=== PATIENT | female | born 1945 | race Caucasian/White ===

== ENCOUNTER → 2017-05-09 | Outpatient (CLI) | payer MEDICARE ==
[~2017-05-09] MED LIST: FISH OIL 1,001000 M1 PO; FOLIC ACID0.4 MG PO; MAGNESIUM250 M1 PO; OIL OF OREGANO PO; PROBIOTIC1 EAC1 PO; PROVENTIL HFA6.7 G1 INH; VITAMIN A10000 UNI3 PO; VITAMIN B1 PO; VITAMIN B12 PO; VITAMIN B6 PO; VITAMIN D3 PO; VITAMIN E400 UNIT PO; VITAMINC500 PO; ZINC CHELATE50 MG PO; ZYRTEC10 M2 PO
--- NOTE | 2017-05-09 16:17 | 2DMMODE ---
[place] [address] 2 D/M-MODE ECHOCARDIOGRAM Name: SIENNABELGICA Marla Room: [facility]#: [id number] Admission: 05/09/17 Attend Phys: John Barlow Discharge: Date of : 47 Date of Service: 05/09/17 1616 Report #: [id number] THIS REPORT FOR: //name// APPROVED REPORT Study performed: 05/09/2017 15:02:50 EXAM: Comprehensive 2D, Doppler, and color-flow Echocardiogram Patient Location: Out-Patient Status: routine BSA: 1.57 HR: 89 bpm BP: 116/64 mmHg Other Information Study Quality: Good Indications CAD 2D Dimensions LVEF(%): 75.54 (>50%) IVSd: 8.67 (7-11mm) LVOT Diam: 20.16 (18-24mm) LVDd: 41.37 mm PWd: 8.46 (7-11mm) Ascending Ao: 27.35 (22-36mm) LVDs: 23.21 (25-40mm) Aortic Root: 24.95 mm Welch's LVEF: 75.54 % Volumes Left Atrial Volume (Systole) LA ESV Index: 15.60 mL/m2 Aortic Valve AoV Peak Arun.: 1.19 m/s AO Peak Gr.: 5.62 mmHg LVOT Max P.41 mmHg AO Mean Gr.: 3.19 mmHg LVOT Mean P.78 mmHg LVOT Max V: 0.92 m/s AO V2 VTI: 24.33 cm LVOT Mean V: 0.62 m/s NELLY (VTI): 2.84 cm2 LVOT V1 VTI: 21.67 cm Mitral Valve E/A Ratio: 1.03 MV Decel. Time: 188.55 [place] [address] 2 D/M-MODE ECHOCARDIOGRAM Name: BELGICA EL Room: [facility]#: [id number] Admission: 05/09/17 Attend Phys: John Barlow Discharge: Date of : 47 Date of Service: 05/09/17 1616 Report #: [id number] MV E Max Arun.: 0.99 m/s MV PHT: 54.68 ms MVA (PHT): 4.02 cm2 TDI E/Lateral E': 9.00 E/Medial E': 11.00 Medial E' Arun.: 0.09 m/s Lateral E' Arun.: 0.11 m/s Pulmonary Valve PV Peak Arun.: 0.88 m/s PV Peak Gr.: 3.10 mmHg Left Ventricle The left ventricle is normal size. There is normal LV segmental wall motion. There is normal left ventricular wall thickness. Left ventricular systolic function is normal. The left ventricular ejection fraction is within the normal range. LVEF is 65%. The left ventricular diastolic function is normal. Right Ventricle The right ventricle is normal size. The right ventricular systolic function is normal. Atria The left atrium size is normal. The right atrium size is normal. Aortic Valve The aortic valve is normal in structure. No aortic regurgitation is present. There is no aortic valvular stenosis. Mitral Valve The mitral valve is normal in structure. There is no mitral valve regurgitation noted. No evidence of mitral valve stenosis. Tricuspid Valve The tricuspid valve is normal in structure. There is no tricuspid valve regurgitation noted. Pulmonic Valve The pulmonary valve is normal in structure. There is no pulmonic valvular regurgitation. Great Vessels The aortic root is normal in size. IVC is normal in size and collapses with >50% [place] [address] 2 D/M-MODE ECHOCARDIOGRAM Name: BELGICA EL Marla Room: [facility]#: [id number] Admission: 05/09/17 Attend Phys: John Barlow Discharge: Date of : 47 Date of Service: 05/09/17 1616 Report #: [id number] Pericardium There is no pericardial effusion. <Conclusion> The left ventricle is normal size. There is normal left ventricular wall thickness. Left ventricular systolic function is normal. The left ventricular ejection fraction is within the normal range. LVEF is 65%. The left ventricular diastolic function is normal. The right ventricle is normal size. The left atrium size is normal. The aortic valve is normal in structure. The mitral valve is normal in structure. The tricuspid valve is normal in structure. IVC is normal in size and collapses with >50% inspiration There is no pericardial effusion. There is normal LV segmental wall motion. <ELECTRONICALLY SIGNED> By: Jonny Ca MD, FACC 05/09/17 1616 1616 161 Jonny Ca MD, FACC /INF
== END ==
LOC: M.CRD 14:45
DX: I25.10 Atherosclerotic heart disease of native coronary artery without angina pectoris (principal)

== ENCOUNTER → 2017-10-11 | Outpatient (CLI) | payer MEDICARE ==
[2017-10-11 10:28] LABS: CREATININE 0.8 mg/dL (0.6-1.3)
== END ==
LOC: M.LAB 10:00 → M.CT 10:04
PROVIDERS: Internal Medicine
DX: G44.52 New daily persistent headache (NDPH) (principal); I25.10 Atherosclerotic heart disease of native coronary artery without angina pectoris

== ENCOUNTER → 2018-05-24 | Outpatient (CLI) | payer MEDICARE ==
--- NOTE | 2018-05-24 14:23 | 2DMMODE ---
[place] [address] 2 D/M-MODE ECHOCARDIOGRAM Name: SIENNABELGICA Marla Room: [facility]#: [id number] Admission: 05/24/18 Attend Phys: John Barlow Discharge: Date of : 47 Date of Service: 05/24/18 1423 Report #: [id number] THIS REPORT FOR: //name// APPROVED REPORT Study performed: 05/24/2018 13:09:32 EXAM: Comprehensive 2D, Doppler, and color-flow Echocardiogram Patient Location: Out-Patient BSA: 1.56 HR: 78 bpm BP: 116/64 mmHg Other Information Study Quality: Excellent Indications Palpitations 2D Dimensions IVSd: 9.25 (7-11mm) LVOT Diam: 18.57 (18-24mm) LVDd: 38.75 mm PWd: 8.78 (7-11mm) Ascending Ao: 24.60 (22-36mm) LVDs: 23.47 (25-40mm) Aortic Root: 22.37 mm Volumes Left Atrial Volume (Systole) LA ESV Index: 17.10 mL/m2 Aortic Valve AoV Peak Arun.: 1.00 m/s AO Peak Gr.: 3.97 mmHg LVOT Max P.39 mmHg AO Mean Gr.: 2.08 mmHg LVOT Mean P.67 mmHg LVOT Max V: 0.92 m/s AO V2 VTI: 19.92 cm LVOT Mean V: 0.59 m/s NELLY (VTI): 2.84 cm2 LVOT V1 VTI: 20.86 cm Mitral Valve E/A Ratio: 0.96 MV Decel. Time: 165.76 ms MV E Max Arun.: 0.81 m/s MV PHT: 48.07 ms MVA (PHT): 4.58 cm2 [place] [address] 2 D/M-MODE ECHOCARDIOGRAM Name: BELGICA EL Marla Room: [facility]#: [id number] Admission: 05/24/18 Attend Phys: John Barlow Discharge: Date of : 47 Date of Service: 05/24/18 1423 Report #: [id number] TDI E/Lateral E': 7.36 E/Medial E': 9.00 Medial E' Arun.: 0.09 m/s Lateral E' Arun.: 0.11 m/s Pulmonary Valve PV Peak Arun.: 0.78 m/s PV Peak Gr.: 2.45 mmHg Left Ventricle The left ventricle is normal size. There is normal LV segmental wall motion. There is normal left ventricular wall thickness. Left ventricular systolic function is normal. The left ventricular ejection fraction is within the normal range. LVEF is 55-60%. Grade I - abnormal relaxation pattern. Right Ventricle The right ventricle is normal size. The right ventricular systolic function is normal. Atria The left atrium size is normal. The right atrium size is normal. Aortic Valve The aortic valve is normal in structure. No aortic regurgitation is present. There is no aortic valvular stenosis. Mitral Valve The mitral valve is normal in structure. There is no mitral valve regurgitation noted. No evidence of mitral valve stenosis. Tricuspid Valve The tricuspid valve is normal in structure. There is no tricuspid valve regurgitation noted. Pulmonic Valve The pulmonary valve is normal in structure. Mild pulmonic regurgitation. Great Vessels The aortic root is normal in size. IVC is normal in size and collapses >50% with inspiration. Pericardium There is no peric[place] [address] 2 D/M-MODE ECHOCARDIOGRAM Name: BELGICA EL Room: [facility]#: [id number] Admission: 05/24/18 Attend Phys: John Barlow Discharge: Date of : 47 Date of Service: 05/24/18 1423 Report #: [id number] <Conclusion> Left ventricular systolic function is normal. The left ventricular ejection fraction is within the normal range. <ELECTRONICALLY SIGNED> By: Steve Purcell MD, [facility] 05/24/18 142 142 22 Steve Purcell MD, FACC /INF
== END ==
LOC: M.CRD 12:30
DX: I37.1 Nonrheumatic pulmonary valve insufficiency (principal); R00.2 Palpitations

== ENCOUNTER → 2019-05-08 | Outpatient (CLI) | payer MEDICARE ==
--- NOTE | 2019-05-08 15:50 | 2DMMODE ---
[place] [address] 2 D/M-MODE ECHOCARDIOGRAM Name: BELGICA EL Room: [facility]#: [id number] Admission: 05/08/19 Attend Phys: Madonna Singh RN Discharge: Date of : 47 Date of Service: 05/08/19 1549 Report #: [id number] THIS REPORT FOR: cc: Dionne Barrera MD, Lin W. MD Holkins, John M. MD [facility] ~ APPROVED REPORT Study performed: 05/08/2019 14:05:29 EXAM: Comprehensive 2D, Doppler, and color-flow Echocardiogram Patient Location: Out-Patient BSA: 1.56 HR: 72 bpm BP: 110/60 mmHg Other Information Study Quality: Good Indications Palpitations 2D Dimensions IVSd: 9.78 (7-11mm) LVOT Diam: 19.82 (18-24mm) LVDd: 40.68 mm PWd: 9.42 (7-11mm) Ascending Ao: 28.39 (22-36mm) LVDs: 19.58 (25-40mm) Aortic Root: 23.82 mm Volumes Left Atrial Volume (Systole) LA ESV Index: 15.20 mL/m2 Aortic Valve AoV Peak Arun.: 0.99 m/s AO Peak Gr.: 3.92 mmHg LVOT Max P.70 mmHg AO Mean Gr.: 2.15 mmHg LVOT Mean P.77 mmHg LVOT Max V: 0.96 m/s AO V2 VTI: 20.69 cm LVOT Mean V: 0.61 m/s NELLY (VTI): 3.17 cm2 LVOT V1 VTI: 21.23 cm Mitral Valve E/A Ratio: 0.93 [place] [address] 2 D/M-MODE ECHOCARDIOGRAM Name: BELGICA EL Room: [facility]#: [id number] Admission: 05/08/19 Attend Phys: Madonna Singh RN Discharge: Date of : 47 Date of Service: 05/08/19 1549 Report #: [id number] MV Decel. Time: 178.19 ms MV E Max Arun.: 0.79 m/s MV PHT: 51.67 ms MVA (PHT): 4.26 cm2 TDI E/Lateral E': 8.78 E/Medial E': 9.88 Medial E' Arun.: 0.08 m/s Lateral E' Arun.: 0.09 m/s Pulmonary Valve PV Peak Arun.: 0.74 m/s PV Peak Gr.: 2.17 mmHg Left Ventricle The left ventricle is normal size. There is normal LV segmental wall motion. There is normal left ventricular wall thickness. Left ventricular systolic function is normal. The left ventricular ejection fraction is within the normal range. LVEF is 60%. Grade I - abnormal relaxation pattern. Right Ventricle The right ventricle is normal size. The right ventricular systolic function is normal. Atria The left atrium size is normal. The right atrium size is normal. Aortic Valve The aortic valve is normal in structure. No aortic regurgitation is present. There is no aortic valvular stenosis. Mitral Valve The mitral valve is normal in structure. There is no mitral valve regurgitation noted. No evidence of mitral valve stenosis. Tricuspid Valve The tricuspid valve is normal in structure. There is no tricuspid valve regurgitation noted. Pulmonic Valve The pulmonary valve is normal in structure. There is no pulmonic valvular regurgitation. Great Vessels The aortic root is normal in size. IVC [place] [address] 2 D/M-MODE ECHOCARDIOGRAM Name: BELGICA EL Room: [facility]#: [id number] Admission: 05/08/19 Attend Phys: Madonna Singh RN Discharge: Date of : 47 Date of Service: 05/08/19 1549 Report #: [id number] collapses >50% with inspiration. Pericardium There is no pericardial effusion. <Conclusion> The left ventricle is normal size. There is normal left ventricular wall thickness. Left ventricular systolic function is normal. The left ventricular ejection fraction is within the normal range. LVEF is 60%. Grade I - abnormal relaxation pattern. The right ventricle is normal size. The left atrium size is normal. The aortic valve is normal in structure. The mitral valve is normal in structure. The tricuspid valve is normal in structure. IVC is normal in size and collapses >50% with inspiration. There is no pericardial effusion. There is normal LV segmental wall motion. <ELECTRONICALLY SIGNED> By: Jonny Ca MD, [facility] 05/08/19 1549 1549 1549 Jonny Ca MD, [facility] /INF
== END ==
LOC: M.CRD 13:45
DX: R00.2 Palpitations (principal)

== ENCOUNTER → 2020-06-03 | Outpatient (CLI) | payer MEDICARE ==
--- NOTE | 2020-06-03 11:52 | 2DMMODE ---
[place] [address] 2 D/M-MODE ECHOCARDIOGRAM Name: BELGICA EL Room: [facility]#: [id number] Admission: 06/03/20 Attend Phys: John Barlow Discharge: Date of : 47 Date of Service: 06/03/20 1151 Report #: [id number] THIS REPORT FOR: cc: Dionne Barrera MD, Lin W. MD Liston, Michael J. MD [facility] ~ APPROVED REPORT Study performed: 06/03/2020 10:01:34 EXAM: Comprehensive 2D, Doppler, and color-flow Echocardiogram Patient Location: Out-Patient BSA: 1.58 HR: 77 bpm BP: 120/80 mmHg Other Information Study Quality: Good Indications Dyspnea Palpitations 2D Dimensions IVSd: 8.59 (7-11mm) LVOT Diam: 19.66 (18-24mm) LVDd: 36.30 mm PWd: 7.53 (7-11mm) Ascending Ao: 27.14 (22-36mm) LVDs: 22.44 (25-40mm) Aortic Root: 26.60 mm Volumes Left Atrial Volume (Systole) LA ESV Index: 17.60 mL/m2 Aortic Valve AoV Peak Arun.: 1.03 m/s AO Peak Gr.: 4.27 mmHg LVOT Max P.06 mmHg AO Mean Gr.: 2.27 mmHg LVOT Mean P.46 mmHg LVOT Max V: 0.87 m/s AO V2 VTI: 20.65 cm LVOT Mean V: 0.55 m/s NELLY (VTI): 3.12 cm2 LVOT V1 VTI: 21.21 [place] [address] 2 D/M-MODE ECHOCARDIOGRAM Name: BELGICA EL Room: [facility]#: [id number] Admission: 06/03/20 Attend Phys: John Barlow Discharge: Date of : 47 Date of Service: 06/03/20 1151 Report #: [id number] E/A Ratio: 1.01 MV Decel. Time: 161.61 ms MV E Max Arun.: 0.88 m/s MV PHT: 46.87 ms MVA (PHT): 4.69 cm2 TDI E/Lateral E': 9.78 E/Medial E': 8.80 Medial E' Arun.: 0.10 m/s Lateral E' Arun.: 0.09 m/s Pulmonary Valve PV Peak Arun.: 0.72 m/s PV Peak Gr.: 2.04 mmHg Left Ventricle The left ventricle is normal size. There is normal LV segmental wall motion. There is normal left ventricular wall thickness. Left ventricular systolic function is normal. LVEF is 60-65%. Grade I - abnormal relaxation pattern. Right Ventricle The right ventricle is normal size. The right ventricular systolic function is normal. Atria The left atrium size is normal. The right atrium size is normal. Aortic Valve The aortic valve is normal in structure. No aortic regurgitation is present. There is no aortic valvular stenosis. Mitral Valve The mitral valve is normal in structure. There is no mitral valve regurgitation noted. No evidence of mitral valve stenosis. Tricuspid Valve The tricuspid valve is normal in structure. There is no tricuspid valve regurgitation noted. Pulmonic Valve The pulmonary valve is normal in structure. There is no pulmonic valvular regurgitation. Great Vessels The aortic root is normal in size. IVC [place] [address] 2 D/M-MODE ECHOCARDIOGRAM Name: BELGICA EL Room: [facility]#: [id number] Admission: 06/03/20 Attend Phys: John Barlow Discharge: Date of : 47 Date of Service: 06/03/20 1151 Report #: [id number] collapses >50% with inspiration. Pericardium There is no pericardial effusion. <Conclusion> The left ventricle is normal size. There is normal left ventricular wall thickness. Left ventricular systolic function is normal. LVEF is 60-65%. Grade I - abnormal relaxation pattern. IVC is normal in size and collapses >50% with inspiration. <ELECTRONICALLY SIGNED> By: Johny Holbrook MD, FACC 06/03/20 1151 1151 1151 Johny Holbrook MD, FACC /INF
== END ==
LOC: M.CRD 10:00
PROVIDERS: ATTEND Internal Medicine
DX: R06.00 Dyspnea, unspecified (principal); R00.2 Palpitations